=== PATIENT | female | born 1965 | race Caucasian/White ===

== ENCOUNTER 2023-07-16 21:07 | Emergency (ER) | payer BC ==
[~2023-07-16] VITALS: Ht 167.6 cm; Wt 95.3 kg
[2023-07-16 21:33] VITALS: BP 150/81; TEMP 98.2; O2SAT 96
[2023-07-16] MEDS ORDERED: CEPH500C2 PO (22:22)
== END 2023-07-16 22:29 | disposition home or self-care (01) ==
LOC: ER 21:07
DX: H00.012 Hordeolum externum right lower eyelid (principal); Z79.899 Other long term (current) drug therapy